=== PATIENT | female | born 1980 | race Caucasian/White ===

== ENCOUNTER 2021-05-28 09:13 | Emergency (ER) | payer MEDICAID, SELFPAY ==
[2021-05-28 09:56] VITALS: BP 138/91; PULSE 81; RESP 17; TEMP 36.8; O2SAT 100; BMI 27.4
--- NOTE | 2021-05-28 10:00 | HMH.EDUTC ---
[facility] [place] Clinical Impression: Poison opal dermatitis Disposition: Home, Self-Care Condition on Discharge: Good Instructions: DI for Poison Opal Allergy Additional Instructions: Avoid contact with the offending substance (poison opal). Don't start the oral steroids until tomorrow. Don't put the topical steroids (triamcinolone) on your face or your groin. Follow up with your regular doctor. GO TO THE ER FOR ANY WORSENING SYMPTOMS OR CONCERNS Prescriptions: methylPREDNISolone [Medrol] 4 mg PO DIRECTED 6 Days #21 [email or web address] Transmission Status: Received by [facility] Triamcinolone Acetonide 1 applicatio TP TIDP PRN 7 Days #1 tube PRN Reason: Itching Transmission Status: Received by [facility] Referrals: Provider,Referral, MD [Primary Care Provider] - Time of Disposition: 10:06 Medical Decision Making - Medical Records Medical records reviewed: No: I reviewed the patient's medical records. - [place] Inquiry Pt receiving controlled substance: No Vital Signs: 05/28/21 09:56 05/28/21 10:56 Temperature 98.3 F 97.9 F Temperature Source Temporal Artery Scan Oral Pulse Rate 76 Pulse Rate [Left Radial] 81 Respiratory Rate 17 19 Blood Pressure 122/87 Blood Pressure [Right Arm] 138/91 H Blood Pressure Mean [Right Arm] 106 Blood Pressure Source [Right Arm] Automatic Cuff Blood Pressure Position [Right Arm] Sitting 02 Sat by Pulse Oximetry 100 Oxygen Delivery Method Room Air - Lab Data Lab Results 05/28/21 10:11: Urine Color Yellow, Urine Appearance Clear, Urine pH 7.0, Ur Specific [place] 1.025, Urine Protein Negative, Urine Glucose (UA) Negative, Urine Ketones Negative, Urine Blood Negative, Urine Nitrate Negative, Urine Bilirubin Negative, Urine Urobilinogen 0.2, Ur Leukocyte Esterase Negative Orders (Tests/Meds): ED MEDICATIONS Discontinued Medications Generic Name Dose Route Start Last Admin Trade Name Freq PRN Reason Stop Dose Admin Methylprednisolone Sodium Succinate 125 mg 05/28/21 09:40 05/28/21 09:55 Methylprednisolone Sod Succ 125mg Vial IM 05/28/21 09:41 125 mg ONCE ONE Administration [facility] [place] - General Stated complaint: allergic reaction Time Seen by Provider: 05/28/21 09:25 - History of Present Illness Provider Complaint: She states that she has poison opal on her face, neck and both arms. It has been getting worse over the past 3 days. Today, she woke up with swellling around her right eye. - Related Data Previous Rx's Medication Instructions Recorded Triamcinolone Acetonide 1 applicatio TP TIDP PRN 7 Days #1 05/28/21 tube methylPREDNISolone [Medrol] 4 mg PO DIRECTED 6 Days #21 05/28/21 [email or web address] Allergies Allergy/AdvReac Type Severity Reaction Status Date / Time Penicillins AdvReac Intermediate high fever Verified 12/02/17 11:31 [facility] History - Hepatitis A Screen Attestation statement:: This patient has been screened for Hepatitis A risk factors. I have reviewed the patient's past medical history: Yes Medical History: Denies:: Cancer, Chronic Obstructive Pulmonary Disease (COPD), MRSA Other Surgeries: Yes: No Previous Surgery - Social History Smoking Status: Current every day smoker Tobacco Type: cigarettes # Packs/Day (cigarettes): 1 Alcohol Intake: never Substance Use Type: denies use Occupational Status: employed Housing: house Household Members: spouse Family Hx:: Diabetes ROS Obtained: Yes All systems reviewed & no additional complaints - Constitutional Constitutional: Denies chills, Denies fever(s) - Eyes Eyes: Reports itchy eyes - ENT Ears, Nose, Mouth, and Throat: Denies dizziness, Denies otalgia, Denies sore throat - Cardiovascular Cardiovascular: Denies chest pain - Respiratory Respiratory: Denies chest congestion, Denies cough, Denies dyspnea - Integumentary/Breasts Skin/Breast: Reports as per HPI Physical Exam - General General appearance: kim
[2021-05-28 10:16] LABS: Apearance,Urine Clear (Clear); Bilirubin,Urine Negative (Negative); Blood, Urine Negative (Negative); Color,Urine Yellow (Yellow); Glucose,Urine (UA) Negative (Negative); Ketones,Urine Negative (Negative); Protein,Urine Negative (Negative); Specific Gravity, Urine 1.025 (1.005-1.030); UTC Leukocyte Esterase,Urine Negative (Negative); UTC Nitrate,Urine Negative (Negative); Urobilinogen,Urine 0.2 EU/dl (0.2)
[2021-05-28 10:56] VITALS: BP 122/87; PULSE 76; RESP 19; TEMP 36.6; O2SAT 99
== END 2021-05-28 10:56 | disposition home or self-care (01) ==
PROVIDERS: Emergency Provider Nurse Practitioner Family
DX: L23.7 Allergic contact dermatitis due to plants, except food (principal); F17.210 Nicotine dependence, cigarettes, uncomplicated
CPT/HCPCS: 81003; 96372; 99202; G0463

== ENCOUNTER → 2023-07-07 08:11 | Outpatient (CLI) | payer BC, MEDICAID, SELFPAY ==
[2023-07-07 09:23] LABS: Chloride 105 mmol/L (98-107); Potassium 4.1 mmoL/L (3.5-5.1); Sodium 139 mmol/L (136-145)
[2023-07-07 09:26] LABS: Alanine Aminotransferase 25 U/L (12-78); Albumin Level 3.7 g/dl (3.5-5.0); Albumin/Globulin Ratio 1.2 (1.1-1.8); Alkaline Phosphatase 108 U/L (38-126); Anion Gap 13.1 mEq/L (5-15); Aspartate Amino Transferase 22 U/L (14-36); Bilirubin,Total 0.6 mg/dl (0.2-1.3); Blood Urea Nitrogen 13 mg/dl (7-17); Carbon Dioxide 25 mmol/L (22.0-30.0); Cholesterol 175 mg/dl (140-200); Estimated Glomerular Filt Rate 110 ml/min (>60); GFR (African American) 133 ML/MIN (>60); Total Protein,Serum 6.7 g/dl (6.3-8.2); Triglycerides 292 mg/dl (30-150); VLDL Cholesterol 58 mg/dL (0-40)
[2023-07-07 09:27] LABS: Calcium 9.4 mg/dl (8.4-10.2); Glucose 94 mg/dl (74-100); HDL Cholesterol 35 mg/dl (40-60)
[2023-07-07 09:37] LABS: Direct LDL Cholesterol 87.44 mg/dL (100-129)
== END ==
PROVIDERS: PCP Physician Assistant; Visit Provider Physician Assistant
DX: E78.5 Hyperlipidemia, unspecified (principal)
CPT/HCPCS: 36415; 80053; 80061

== ENCOUNTER 2023-10-12 11:14 | Emergency (ER) | payer BC, SELFPAY ==
[2023-10-12 11:30] VITALS: BP 141/90; PULSE 80; RESP 20; TEMP 36.7; O2SAT 97; BMI 31.1
--- NOTE | 2023-10-12 11:51 | EXP.UTC ---
Discharge Plan Disposition Patient Disposition: Home, Self-Care Condition: Good Prescriptions Prescriptions: New azithromycin [Zithromax Z-Osvaldo] 250 mg tablet See Rx Instructions .ROUTE .COMPLEX 5 Days Qty: 6 0RF Rx Instructions: For 250 mg dose pack: take 500 mg today (day 1), then 250 mg for 4 days (days 2-5) methylprednisolone [Medrol (Osvaldo)] 4 mg tablets,dose pack See Rx Instructions .Route .COMPLEX 6 Days Qty: 21 0RF Rx Instructions: taper pack; Referrals Follow up/Referrals: Kaykay Rodríguez PA [Primary Care Provider] - See instructions Activity Restrictions/Add. Instructions Additional Instructions/Restrictions: *Monitor Temp, Over the counter Motrin or Tylenol as directed/as needed Tylenol every 4 hours and Motrin every 6 hours (as long as your family doctor has told you that you can take it) for fever or pain. and straight to ER if unable to lower temp less than 101.0 after medication given *Warm salt water gargles may help to soothe the throat *Throat Lozenges? *Warm fluids like tea with honey may help to soothe the throat? *Sleep elevated *Humidifier/Vaporizer Follow up IMMEDIATELY for new or worsening symptoms or no Noticeable improvement over the next 48-72 hours. 911 for difficulty breathing or swallowing Clinical Impressions Clinical Impression: Sinusitis Qualifiers: Sinusitis location: unspecified location Chronicity: unspecified Qualified Code(s): J32.9 - Chronic sinusitis, unspecified Instructions Patient Instructions: DI for Sinusitis, Sinusitis, DI for Ear Pain-Adult Discharge ED Provider: Charlotte Chua [facility] [place] General Stated complaint: CONGESTED, EAR PAIN, DIZZY Mode of Arrival: Ambulatory Source of Information: Patient Limitations: No Limitations Time Seen by Provider: 10/12/23 11:51 Description of Symptoms (Recalled from Triage Doc. by RN): PATIENT C/O LEFT EAR PAIN, SINUS DRAINAGE, SORE THROAT, AND COUGH SINCE WEDNESDAY HEENT Symptoms (Recalled from RN notes): Yes Resp Symptoms (Recalled from RN notes): Yes Skin Symptoms (Recalled from RN notes): No MS Symptoms (Recalled from RN notes): No Functional Status (Recalled from RN notes): WNL History of Present Illness Provider Complaint: Patient states that she has been having pain in her left ear, sinus pain and pressure that is worse on her left side and sore throat and cough States that today she was feeling worse so she came in to get checked States that she cant hardly hear out of her left ear States that it has continued to get worse since Wednesday Related Data Previous Rx's Medication Instructions Recorded azithromycin 250 mg tablet See Rx Instructions PO .COMPLEX 5 10/12/23 (Zithromax Z-Osvaldo) days #6 tabs methylprednisolone 4 mg tablets in See Rx Instructions .Route 10/12/23 a dose pack (Medrol (Osvaldo)) .COMPLEX 6 days #21 tabs Allergies Allergy/AdvReac Type Severity Reaction Status Date / Time Penicillins AdvReac Intermediate high fever Verified 12/02/17 11:31 Worker's Comp Is this a Worker's Comp case?: No [facility] Disclaimer: The information contained in this section may have been updated after the patient was seen, as this information can be updated by other users. Medical History (Updated 10/12/23 @ 11:58 by Charlotte Chua APRN) Hyperlipidemia Urinary tract infection Surgical History (Updated 10/12/23 @ 11:49 by Dejah Kong RN) History of section Social History Smoking Status: Never smoker second hand exposure: No alcohol intake: never substance use type: denies use current occupational status: employed Travel in the last 8 weeks: None household members: spouse housing: house current occupational exposures/hazards: No caffeine: No ROS Obtained: Yes All systems reviewed & no additional complaints except as documented and Yes Systems reviewed as appropriate & no additional complaints except as do
[2023-10-12 12:00] VITALS: BP 141/90; PULSE 80; RESP 20; TEMP 36.7; O2SAT 97
== END 2023-10-12 12:03 | disposition home or self-care (01) ==
PROVIDERS: Emergency Provider Nurse Practitioner; PCP Physician Assistant
DX: J01.90 Acute sinusitis, unspecified (principal); R09.81 Nasal congestion; R42 Dizziness and giddiness; H92.02 Otalgia, left ear; R07.0 Pain in throat; R05.9 Cough, unspecified; E78.5 Hyperlipidemia, unspecified
CPT/HCPCS: 99212; 99214; G0463

== ENCOUNTER 2024-04-28 13:11 | Outpatient (CLI) | payer BC, SELFPAY ==
--- NOTE | 2024-04-28 13:18 | XR_ITS ---
FINAL REPORT CLINICAL HISTORY: LT SIDE LOW BACK PAIN W/SCIATICA FINDINGS: LUMBAR SPINE Five views demonstrate no acute fracture. There is mild leftward curvature. The disc spaces are well preserved. There is no malalignment. IMPRESSION: No acute process. Reviewed, Interpreted and Dictated by Delfin Brewer III, MD Transcribed by Susan Veloz Authenticated and [facility]
== END 2024-04-28 23:59 | disposition home or self-care (01) ==
LOC: RAD 13:12
PROVIDERS: PCP Physician Assistant; Visit Provider Physician Assistant
DX: M54.42 Lumbago with sciatica, left side (principal)
CPT/HCPCS: 72110